=== PATIENT | male | born 1960 | race Caucasian/White ===

== ENCOUNTER 2018-06-08 10:42 | Observation (INO) | payer BC, OTHER ==
[2018-06-08] MEDS ORDERED: ASPIRIN 81 MG TABLET, CHEWABLE PO ONE (11:11)
--- NOTE | 2018-06-08 11:12 | ER Document Report ---
ED Medical Screen (RME) - General Chief Complaint: Chest Pain Stated Complaint: CHEST PAIN, DIZZY Primary Care Provider: GAMAL WYMAN MD [Primary Care Provider] - Follow up as needed TRAVEL OUTSIDE OF THE [place] IN LAST 30 DAYS: No - HPI Notes: 06/08/18 11:12 Patient complained of chest pain which started last night. Pain comes and goes. There is no pattern to this chest pain. Patient has sarcoidosis and hypertension. He has never had a stress test in the past. Patient said currently he is chest pain-free. - Related Data Allergies/Adverse Reactions: No Known Allergies Allergy (Verified 06/08/18 10:56) Past Medical History - Social History Chew tobacco use (# tins/day): No Frequency of alcohol use: None Drug Abuse: None - Past Medical History Cardiac Medical History: Reports: Hx Hypertension Renal/ Medical History: Denies: Hx Peritoneal Dialysis Physical Exam - Vital signs Vitals: Temp Pulse Resp BP Pulse Ox 98.2 F 78 18 152/91 H 98 06/08/18 10:51 06/08/18 10:51 06/08/18 10:51 06/08/18 10:51 06/08/18 10:51 Course - Vital Signs Vital signs: Temp Pulse Resp BP Pulse Ox 98.2 F 78 18 152/91 H 98 06/08/18 10:51 06/08/18 10:51 06/08/18 10:51 06/08/18 10:51 06/08/18 10:51 Doctor's Discharge - Discharge Referrals: GAMAL WYMAN MD [Primary Care Provider] - Follow up as needed
[2018-06-08] MEDS ORDERED: NITROGLYCERIN 5 MG (0.2 MG/HR) PATCH.TD24 TD ONE ×2 (11:13→14:00)
[2018-06-08 11:49] LABS: ABSOLUTE EOSINOPHILS # (AUTO) 0.3 10^3/uL (0.0-0.6); ABSOLUTE MONOCYTES (AUTO) 0.8 10^3/uL (0.1-1.4); ABSOLUTE NEUT (AUTO) 3.7 10^3/uL (1.7-8.2); BASOPHILS % (AUTO) 0.5 % (0-2); EOSINOPHILS % (AUTO) 4.5 % (0-6); INTERNATIONAL RATION (INR) 0.97; PROTHROMBIN TIME 13.4 SEC (11.4-15.4); TOTAL CELLS COUNTED % (AUTO) 100 %
[2018-06-08 11:50] LABS: PARTIAL THROMBOPLASTIN TIME 25.9 SEC (23.5-35.8)
[2018-06-08 11:58] LABS: ABSOLUTE LYMPHOCYTES (AUTO) 0.9 10^3/uL (0.5-4.7); HEMATOCRIT 45.7 % (37.9-51.0); HEMOGLOBIN 15.9 g/dL (13.5-17.0); LYMPHOCYTES % (AUTO) 15.6 % (13-45); MEAN CORPUSCULAR HEMOGLOBIN 31.8 pg (27.0-33.4); MEAN CORPUSCULAR HGB CONC 34.8 g/dL (32.0-36.0); MEAN CORPUSCULAR VOLUME 92 fl (80-97); MONOCYTES % (AUTO) 14.4 % (3-13); PLATELET COUNT 150 10^3/uL (150-450); WHITE BLOOD COUNT 5.7 10^3/uL (4.0-10.5)
[2018-06-08 12:06] LABS: ALANINE AMINOTRANSFERASE 34 U/L (21-72); ALBUMIN 4.7 g/dL (3.5-5.0); ALKALINE PHOSPHATASE 88 U/L (38-126); ANION GAP 7 (5-19); ASPARTATE AMINO TRANSFERASE 32 U/L (17-59); BILIRUBIN,DIRECT 0.3 mg/dL (0.0-0.4); BILIRUBIN,TOTAL 0.7 mg/dL (0.2-1.3); BLOOD UREA NITROGEN 20 mg/dL (7-20); CALCIUM 11.5 mg/dL (8.4-10.2); CARBON DIOXIDE 31 mmol/L (22-30); CHLORIDE 102 mmol/L (98-107); CREATINE KINASE 58 U/L (55-170); GLUCOSE 114 mg/dL (75-110); POTASSIUM 4.4 mmol/L (3.6-5.0); SODIUM 140.2 mmol/L (137-145); TOTAL PROTEIN 8.6 g/dL (6.3-8.2)
--- NOTE | 2018-06-08 12:06 | RADIOLOGY REPORT (SQ) ---
EXAM DESCRIPTION: CHEST SINGLE VIEW COMPLETED DATE/TIME: 06/08/2018 11:23 am REASON FOR STUDY: chest pain COMPARISON: None. EXAM PARAMETERS: NUMBER OF VIEWS: One view. TECHNIQUE: Single frontal radiographic view of the chest acquired. RADIATION DOSE: NA LIMITATIONS: None. FINDINGS: LUNGS AND PLEURA: Bilateral perihilar infiltrates. Partially confluent infiltrate on the right. Infectious etiology most likely. No previous chest x-rays. Recommend clinical correlation a nd followup for clearing. MEDIASTINUM AND HILAR STRUCTURES: No masses. Contour normal. HEART AND VASCULAR STRUCTURES: Heart normal in size. Normal vasculature. BONES: No acute findings. HARDWARE: None in the chest. OTHER: No other significant finding. IMPRESSION: Perihilar infiltrates. See above discussion. TECHNICAL DOCUMENTATION: JOB ID: [id number] [employer]- All Rights Reserved Reading location - IP/workstation name: [email or web address]
[2018-06-08 12:21] LABS: CREATINE KINASE MB 0.54 ng/mL (<4.55)
[2018-06-08 12:22] LABS: TROPONIN I < 0.012 ng/mL
--- NOTE | 2018-06-08 13:09 | EKG REPORT ---
SEVERITY:- NORMAL ECG - SINUS RHYTHM : Confirmed by: Maximo Marmolejo MD 08-Jun-2018 13:08:15
[2018-06-08] MEDS ORDERED: NITROGLYCERIN 2% OINTMENT 1 GM PACKET ONE (13:20)
--- NOTE | 2018-06-08 15:01 | ER Document Report ---
ED Cardiac - General Chief Complaint: Chest Pain Stated Complaint: CHEST PAIN, DIZZY Time Seen by Provider: 06/08/18 14:21 Notes: 58-year-old male to the emergency department chief complaint of left-sided chest pain. Patient states that he began having chest pain at work. Pain was located on the left side. Began also having some dizziness and felt like he was going to pass out. [place] tingling all over. He is never felt this way before. Did not pass out. Pain waxed and waned but at this time is gone. Patient does have a history of sarcoidosis. TRAVEL OUTSIDE OF THE [place] IN LAST 30 DAYS: No - HPI Patient complains to provider of: Chest pain Quality of pain: Mild, Burning Chest pain radiation location: Left arm Severity now: Mild Severity at worst: Mild Pain level currently: Denies Cardiac risk factors: None Associated symptoms: Dizziness, Lightheaded - Related Data Allergies/Adverse Reactions: No Known Allergies Allergy (Verified 06/08/18 10:56) Past Medical History - General Information source: Patient - Social History Smoking Status: Never Smoker Chew tobacco use (# tins/day): No Frequency of alcohol use: None Drug Abuse: None Lives with: Spouse/Significant other Family History: Reviewed & Not Pertinent Patient has suicidal ideation: No Patient has homicidal ideation: No - Past Medical History Cardiac Medical History: Reports: Hx Hypertension Renal/ Medical History: Denies: Hx Peritoneal Dialysis Review of Systems - Review of Systems Notes: Constitutional: denies: Chills, Diaphoresis, Fever, Malaise, Weakness EENT: denies: Eye discharge, Blurred vision, Tearing, Double vision, Nose congestion, Nose discharge, Throat swelling, Mouth pain Cardiovascular: denies: Palpitations, Heart racing, Orthopnea, Dyspnea, +Chest pain Respiratory: denies: Cough, Hurts to breathe, Wheezing, Shortness of breath Gastrointestinal: denies: Abdominal pain, Diarrhea, Nausea, Vomiting, Black stools, bright red blood in stool Genitourinary: denies: Burning, Dysuria, Discharge, Frequency, Flank pain, Hematuria Musculoskeletal: denies: Joint pain, Joint swelling, Muscle pain, Muscle stiffness, back pain Hematologic/Lymphatic: denies: Anemia, Easy bleeding, Easy bruising, Blood clots Neurological/Psychological: denies: Confusion, Dementia, Depression, Loss of consciousness. Positive for dizziness Skin: No lesions, no masses, no skin breakdown, no abscesses Physical Exam - Vital signs Vitals: Temp Pulse Resp BP Pulse Ox 98.2 F 78 18 152/91 H 98 06/08/18 10:51 06/08/18 10:51 06/08/18 10:51 06/08/18 10:51 06/08/18 10:51 Interpretation: Normal - General General appearance: Appears well, Alert - HEENT Head: Normocephalic, Atraumatic Eyes: Normal Pupils: PERRL - Respiratory Respiratory status: No respiratory distress Chest status: Nontender Breath sounds: Normal Chest palpation: Normal - Cardiovascular Rhythm: Regular Heart sounds: Normal auscultation Murmur: No - Abdominal Inspection: Normal Distension: No distension Bowel sounds: Normal Tenderness: Nontender Organomegaly: No organomegaly - Back Back: Normal, Nontender - Extremities General upper extremity: Normal inspection, Nontender, Normal color, Normal ROM, Normal temperature General lower extremity: Normal inspection, Nontender, Normal color, Normal ROM, Normal temperature, Normal weight bearing. No: Brie's sign - Neurological Neuro grossly intact: Yes Cognition: Normal Orientation: AAOx4 [place] Coma Scale Eye Opening: Spontaneous [place] Coma Scale Verbal: Oriented [place] Coma Scale Motor: Obeys Commands [place] Coma Scale Total: 15 Speech: Normal Motor strength normal: LUE, RUE, LLE, RLE Sensory: Normal - Psychological Associated symptoms: Normal affect, Normal mood - Skin Skin Temperature: Warm Skin Moisture: Dry Skin Color: Normal Course - Re-evaluation Re-evalutation: 06/08/18 17:24 Patient with hypercalcemia ionized calcium greater than normal with chest pain. Negative troponin x2. Acute renal insufficiency with creatinine of 1.6. This is concerning arthrosis calcium level could be causing some renal dysfunction and could be causing an arrhythmia. Uncomfortable discharging without medicine consult at this time. Favor admitting overnight for hydration, cardiac monitoring. Dr. Davis will see patient and we will reconvene but anticipate admission at this time. 06/08/18 18:30 Laboratory 06/08/18 06/08/18 06/08/18 11:31 11:31 11:31 WBC 5.7 RBC 5.00 Hgb 15.9 Hct 45.7 MCV 92 MCH 31.8 MCHC 34.8 RDW 14.0 Plt Count 150 Seg Neutrophils % 65.0 Lymphocytes % 15.6 Monocytes % 14.4 H Eosinophils % 4.5 Basophils % 0.5 Absolute Neutrophils 3.7 Absolute Lymphocytes 0.9 Absolute Monocytes 0.8 Absolute Eosinophils 0.3 Absolute Basophils 0.0 PT 13.4 INR 0.97 APTT 25.9 Sodium 140.2 Potassium 4.4 Chloride 102 Carbon Dioxide 31 H Anion Gap 7 BUN 20 Creatinine 1.65 H Est GFR ( Amer) 52 L Est GFR (Non-Af Amer) 43 L Glucose 114 H Calcium 11.5 H Ionized Calcium Yelena Total Bilirubin 0.7 Direct Bilirubin 0.3 Neonat Total Bilirubin Not Reportable Neonat Direct Bilirubin Not Reportable Neonat Indirect Bili Not Reportable AST 32 ALT 34 Alkaline Phosphatase 88 Creatine Kinase 58 CK-MB (CK-2) Troponin I Total Protein 8.6 H Albumin 4.7 06/08/18 06/08/18 06/08/18 11:31 15:40 16:15 WBC RBC Hgb Hct MCV MCH MCHC RDW Plt Count Seg Neutrophils % Lymphocytes % Monocytes % Eosinophils % Basophils % Absolute Neutrophils Absolute Lymphocytes Absolute Monocytes Absolute Eosinophils Absolute Basophils PT INR APTT Sodium Potassium Chloride Carbon Dioxide Anion Gap BUN Creatinine Est GFR ( Amer) Est GFR (Non-Af Amer) Glucose Calcium Ionized Calcium Yelena 1.36 H Total Bilirubin Direct Bilirubin Neonat Total Bilirubin Neonat Direct Bilirubin Neonat Indirect Bili AST ALT Alkaline Phosphatase Creatine Kinase CK-MB (CK-2) 0.54 Troponin I < 0.012 < 0.012 Total Protein Albumin Chest X-Ray 06/08/18 11:11 IMPRESSION: Perihilar infiltrates. See above discussion. - Vital Signs Vital signs: Temp Pulse Resp BP Pulse Ox 98.2 F 78 16 149/95 H 99 06/08/18 10:51 06/08/18 10:51 06/08/18 18:01 06/08/18 18:00 06/08/18 18:01 - Laboratory Result Diagrams: 06/08/18 11:31 06/08/18 11:31 Laboratory results interpreted by me: 06/08/18 06/08/18 06/08/18 11:31 11:31 16:15 Monocytes % 14.4 H Carbon Dioxide 31 H Creatinine 1.65 H Est GFR ( Amer) 52 L Est GFR (Non-Af Amer) 43 L Glucose 114 H Calcium 11.5 H Ionized Calcium Yelena 1.36 H Total Protein 8.6 H - EKG Interpretation by Mt EKG shows normal: Sinus rhythm, [place], Intervals, QRS Complexes, ST-T Waves Discharge - Discharge Clinical Impression: Hypercalcemia, Acute renal insufficiency Chest pain Qualifiers: Chest pain type: unspecified Qualified Code(s): R07.9 - Chest pain, unspecified Condition: Good Disposition: ADMITTED OBSERVATION Admitting Provider: Hospitalist - [facility] Admitted: Telemetry
[2018-06-08] MEDS ORDERED: NORMAL SALINE 1000 ML 1,000 ML IV ONE (15:16)
--- NOTE | 2018-06-08 18:32 | PDOC H&P ---
History of Present Illness Admission Date/PCP: 06/08/18 17:44 IZZY CHE MD History of Present Illness: JACOB RIOS is a 58 year old male with a history of pulmonary sarcoidosis who has not had a flareup in 2 years was in his usual state of health until last night he began to feel a couple of episodes of the sensation he described as feeling like a bruise that pulsated 3 or 4 times in his left upper chest just under his clavicle and then it spontaneously stopped. This morning whenever he was getting ready for work he said the same thing happened again. He was otherwise feeling fine. He got to work and was logging into his computer when he said he felt that again he also felt what he described as dizziness or giddiness. Whatever it was, he just felt like it was not normal for him and so he decided to come to the hospital to get checked out. He was not having any chest discomfort here. He had 2 sets of negative cardiac enzymes. His EKG was normal. He had some perihilar edema on chest x-ray, elevated creatinine, and elevated calcium. He is being admitted for observation and some IV fluids. Past Medical History Cardiac Medical History: Reports: Hypertension Social History Smoking Status: Never Smoker Family History Family History: Reviewed & Not Pertinent Parental Family History Reviewed: Yes - Hypertension Children Family History Reviewed: Yes - No significant past medical history Sibling(s) Family History Reviewed.: Yes - Hypertension Medication/Allergy Home Medications: Benazepril HCl [Lotensin 5 mg Tablet] 5 mg PO DAILY 06/08/18 Febuxostat [Uloric 80 mg Tablet] 80 mg PO DAILY 06/08/18 Allergies/Adverse Reactions: No Known Allergies Allergy (Verified 06/08/18 10:56) Review of Systems All systems: reviewed and no additional remarkable complaints except as stated - All systems were reviewed and were negative except as noted in the HPI Physical Exam Vital Signs: Temp Pulse Resp BP Pulse Ox 98.2 F 78 27 H 148/91 H 100 06/08/18 10:51 06/08/18 10:51 06/08/18 16:01 06/08/18 15:42 06/08/18 16:01 Intake & Output 06/07/18 06/08/18 06/09/18 06:59 06:59 06:59 Intake Total 1000 Balance 1000 Weight 114.7 kg General appearance: PRESENT: no acute distress, cooperative, morbidly obese Head exam: PRESENT: atraumatic, normocephalic Eye exam: PRESENT: EOMI, PERRLA. ABSENT: conjunctival injection, nystagmus, scleral icterus Ear exam: PRESENT: normal external ear exam Mouth exam: PRESENT: moist, neck supple Throat exam: ABSENT: post pharyngeal erythema Neck exam: PRESENT: full ROM. ABSENT: carotid bruit, JVD, lymphadenopathy, meningismus, tenderness, thyromegaly Respiratory exam: PRESENT: clear to auscultation eloise, symmetrical, unlabored. ABSENT: accessory muscle use, chest wall tenderness, crackles, prolonged expiratory phas, rhonchi, stridor, tachypnea, wheezes Cardiovascular exam: PRESENT: RRR, +S1, +S2. ABSENT: diastolic murmur, systolic murmur Pulses: PRESENT: normal carotid pulses Vascular exam: PRESENT: normal capillary refill GI/Abdominal exam: PRESENT: normal bowel sounds, soft. ABSENT: distended, guarding, rebound, tenderness Extremities exam: ABSENT: clubbing, pedal edema Musculoskeletal exam: PRESENT: normal inspection. ABSENT: deformity Neurological exam: PRESENT: alert, awake, oriented to person, oriented to place, oriented to time, oriented to situation, CN II-XII grossly intact. ABSENT: motor sensory deficit Psychiatric exam: PRESENT: appropriate affect, normal mood Skin exam: PRESENT: dry, warm Results Laboratory Results: 06/08/18 11:31 06/08/18 11:31 06/08/18 06/08/18 06/08/18 11:31 11:31 16:15 WBC 5.7 RBC 5.00 Hgb 15.9 Hct 45.7 MCV 92 MCH 31.8 MCHC 34.8 RDW 14.0 Plt Count 150 Seg Neutrophils % 65.0 Lymphocytes % 15.6 Monocytes % 14.4 H Eosinophils % 4.5 Basophils % 0.5 Absolute Neutrophils 3.7 Absolute Lymphocytes 0.9 Absolute Monocytes 0.8 Absolute Eosinophils 0.3 Absolute Basophils 0.0 Sodium 140.2 Potassium 4.4 Chloride 102 Carbon Dioxide 31 H Anion Gap 7 BUN 20 Creatinine 1.65 H Est GFR ( Amer) 52 L Est GFR (Non-Af Amer) 43 L Glucose 114 H Calcium 11.5 H Ionized Calcium Yelena 1.36 H Total Bilirubin 0.7 AST 32 ALT 34 Alkaline Phosphatase 88 Total Protein 8.6 H Albumin 4.7 06/08/18 06/08/18 06/08/18 11:31 11:31 15:40 Creatine Kinase 58 CK-MB (CK-2) 0.54 Troponin I < 0.012 < 0.012 Impressions: Chest X-Ray 06/08/18 11:11 IMPRESSION: Perihilar infiltrates. See above discussion. Assessment & Plan - Diagnosis (1) Acute kidney injury Is this a current diagnosis for this admission?: Yes Plan: Will have any prior labs to compare so we have to assume this is acute. We will give him some IV fluids to see how he responds. If it does not improve we may need to contact his lathe hand in light of his history of sarcoidosis. (2) Hypercalcemia Is this a current diagnosis for this admission?: Yes Plan: He said this is been an ongoing problem for him with his sarcoidosis. We will give him some IV fluids and repeat a metabolic panel in the morning. - Time Time Spent: 50 to 70 Minutes - Plan Summary Plan Summary: I do not think this was cardiac at all. His story was atypical for cardiac chest pain, his EKG is normal, and he had 2 sets of negative enzymes. Chest x- ray showed some perihilar infiltrates, likely associated with his known pulmona ry sarcoidosis. If his creatinine does not improve with hydration, I will likely contact his lathe hand.
[2018-06-08] MEDS: NORMAL SALINE 1000 ML 1,000 ML IV PRN (21:48)
[2018-06-09] MEDS: NORMAL SALINE 1000 ML 1,000 ML IV PRN ×3 (05:14→20:48)
[2018-06-09 07:06] LABS: BLOOD UREA NITROGEN 20 mg/dL (7-20); CALCIUM 10.1 mg/dL (8.4-10.2); GLUCOSE 96 mg/dL (75-110)
[2018-06-09 07:07] LABS: ANION GAP 9 (5-19); CARBON DIOXIDE 22 mmol/L (22-30); CHLORIDE 108 mmol/L (98-107); POTASSIUM 3.9 mmol/L (3.6-5.0); SODIUM 139.2 mmol/L (137-145)
[2018-06-09] MEDS: FEBUXOSTAT 80 MG TABLET PO SCH (11:03)
[2018-06-09] MEDS: BENAZEPRIL HCL 5 MG TABLET PO SCH (11:03)
--- NOTE | 2018-06-09 14:42 | PDOC PROGRESS REPORT ---
Subjective Progress Note for:: 06/09/18 Subjective:: This is a 58 year old male with a history of pulmonary sarcoidosis who has not had a flareup in 2 years was in his usual state of health until last night he began to feel a couple of episodes of the sensation he described as feeling like a bruise that pulsated 3 or 4 times in his left upper chest just under his clavicle and then it spontaneously stopped. In the ER, his work up was remarkable for perihilar fullness on chest x-ray, elevated creatinine, and elevated calcium. He was admitted for observation and hydration with IV fluids. No acute event overnight. He has been chest pain free since admission. Denies SOB. Creatinine has slightly trended down. Reason For Visit: CMAERON,HYPERCALCEMIA Physical Exam Vital Signs: Temp Pulse Resp BP Pulse Ox 98.3 F 64 20 138/87 H 95 06/09/18 11:27 06/09/18 11:27 06/09/18 11:27 06/09/18 11:27 06/09/18 11:27 Intake & Output 06/08/18 06/09/18 06/10/18 06:59 06:59 06:59 Intake Total 2169 1000 Balance 2169 1000 Weight 252 lb 6.868 oz General appearance: PRESENT: no acute distress, well-developed, well-nourished Head exam: PRESENT: atraumatic, normocephalic Eye exam: PRESENT: conjunctiva pink, EOMI, PERRLA. ABSENT: scleral icterus Ear exam: PRESENT: normal external ear exam Mouth exam: PRESENT: moist, tongue midline Neck exam: ABSENT: carotid bruit, JVD, lymphadenopathy, thyromegaly Respiratory exam: PRESENT: clear to auscultation eloise. ABSENT: rales, rhonchi, wheezes Cardiovascular exam: PRESENT: RRR. ABSENT: diastolic murmur, rubs, systolic murmur Pulses: PRESENT: normal dorsalis pedis pul GI/Abdominal exam: PRESENT: normal bowel sounds, soft. ABSENT: distended, guarding, mass, organolmegaly, rebound, tenderness Rectal exam: PRESENT: deferred Neurological exam: PRESENT: alert, awake, oriented to person, oriented to place, oriented to time, oriented to situation, CN II-XII grossly intact. ABSENT: motor sensory deficit Results Laboratory Results: 06/08/18 11:31 06/09/18 05:48 06/08/18 06/09/18 16:15 05:48 Sodium 139.2 Potassium 3.9 Chloride 108 H Carbon Dioxide 22 Anion Gap 9 BUN 20 Creatinine 1.56 H Est GFR ( Amer) 56 L Est GFR (Non-Af Amer) 46 L Glucose 96 Calcium 10.1 Ionized Calcium Yelena 1.36 H 06/08/18 06/08/18 06/08/18 11:31 11:31 15:40 Creatine Kinase 58 CK-MB (CK-2) 0.54 Troponin I < 0.012 < 0.012 Impressions: Chest X-Ray 06/08/18 11:11 IMPRESSION: Perihilar infiltrates. See above discussion. Assessment & Plan - Diagnosis (1) Acute kidney injury Is this a current diagnosis for this admission?: Yes Plan: Likely pre renal. Slightly improved today with IV fluids. (2) Hypercalcemia Is this a current diagnosis for this admission?: Yes Plan: Likely from dehydration in a patient with sarcoidosis. Resolved with IV fluids. (3) Chest pain Qualifiers: Chest pain type: unspecified Qualified Code(s): R07.9 - Chest pain, unspecified Is this a current diagnosis for this admission?: Yes Plan: Resolved. No chest pain since admission. EKG and troponins have been unremarkable. He may benefit from outpatient stress testing. - Time Time Spent with patient: 15-24 minutes
[2018-06-10] MEDS: NORMAL SALINE 1000 ML 1,000 ML IV PRN (04:48)
[2018-06-10] MEDS: FEBUXOSTAT 80 MG TABLET PO SCH (09:07)
[2018-06-10] MEDS: BENAZEPRIL HCL 5 MG TABLET PO SCH (09:07)
[2018-06-10 10:45] LABS: ANION GAP 8 (5-19); BLOOD UREA NITROGEN 17 mg/dL (7-20); CALCIUM 10.7 mg/dL (8.4-10.2); CARBON DIOXIDE 26 mmol/L (22-30); CHLORIDE 107 mmol/L (98-107); GLUCOSE 100 mg/dL (75-110); SODIUM 140.5 mmol/L (137-145)
[2018-06-10 11:27] VITALS: BP 133/83
--- NOTE | 2018-06-10 17:22 | PDOC DISCHARGE SUMMARY ---
General - Admit/Disc Date/PCP Admission Date/Primary Care Provider: 06/08/18 17:44 IZZY CHE MD Discharge Date: 06/10/18 - Discharge Diagnosis (1) Acute kidney injury Is this a current diagnosis for this admission?: Yes (2) Hypercalcemia Is this a current diagnosis for this admission?: Yes (3) Chest pain Is this a current diagnosis for this admission?: Yes - Additional Information Resuscitation Status: Full Code Discharge Diet: As Tolerated Discharge Activity: Activity As Tolerated Home Medications: Benazepril HCl [Lotensin 5 mg Tablet] 5 mg PO DAILY 06/08/18 Febuxostat [Uloric 80 mg Tablet] 40 mg PO DAILY #0 06/10/18 History of Present Illness History of Present Illness: Admitting hospitalist's H&P: JACOB RIOS is a 58 year old male with a history of pulmonary sarcoidosis who has not had a flareup in 2 years was in his usual state of health until last night he began to feel a couple of episodes of the sensation he described as feeling like a bruise that pulsated 3 or 4 times in his left upper chest just under his clavicle and then it spontaneously stopped. This morning whenever he was getting ready for work he said the same thing happened again. He was otherwise feeling fine. He got to work and was logging into his computer when he said he felt that again he also felt what he described as dizziness or giddiness. Whatever it was, he just felt like it was not normal for him and so he decided to come to the hospital to get checked out. He was not having any chest discomfort here. He had 2 sets of negative cardiac enzymes. His EKG was normal. He had some perihilar edema on chest x-ray, elevated creatinine, and elevated calcium. He is being admitted for observation and some IV fluids. Hospital Course Hospital Course: This is a 58 year old male with a history of pulmonary sarcoidosis who has not had a flareup in 2 years, taken off methotrexate and was in his usual state of health who presented with a vague chest discomfort. In the ER, his work up was remarkable for perihilar fullness on chest x-ray, elevated creatinine, and elevated calcium. He was admitted for observation and hydration with IV fluids. His EKG and serial troponins were normal. He described his chest discomfort as "as if a finger is mildly poking on my left upper chest" lasting for a few seconds and nonradiating. He has been chest pain free since admission. He was recommended outpatient stress testing for this. He was started on fluids which did improve his creatinine. He has a known sa rcoidosis and has been taken off methotrexate by his fiberglass roller as he was considered in remission. His hypercalcemia also improve with IV fluids. CXR shows perihilar fullness classic of sarcoid. He denies any cough or SOB. No leukocytosis. He does say he was following up with a button tacker at [facility] for his sarcoidosis. Recommended close ff-up with his rheum and button tacker for further recommendations about need to restart him on medication for sarcoidosis. Physical Exam Vital Signs: Temp Pulse Resp BP Pulse Ox 98.1 F 68 18 133/83 H 93 06/10/18 13:22 06/10/18 13:22 06/10/18 13:22 06/10/18 13:22 06/10/18 13:22 Intake & Output 06/09/18 06/10/18 06/11/18 06:59 06:59 06:59 Intake Total 2169 4120 1000 Balance 2169 4120 1000 Weight 252 lb 6.868 oz 252 lb 6.868 oz General appearance: PRESENT: no acute distress, well-developed, well-nourished Head exam: PRESENT: atraumatic, normocephalic Eye exam: PRESENT: conjunctiva pink, EOMI, PERRLA. ABSENT: scleral icterus Ear exam: PRESENT: normal external ear exam Mouth exam: PRESENT: moist, tongue midline Neck exam: ABSENT: carotid bruit, JVD, lymphadenopathy, thyromegaly Respiratory exam: PRESENT: clear to auscultation eloise. ABSENT: rales, rhonchi, wheezes Cardiovascular exam: PRESENT: RRR. ABSENT: diastolic murmur, rubs, systolic murmur Pulses: PRESENT: normal dorsalis pedis pul GI/Abdominal exam: PRESENT: normal bowel sounds, soft. ABSENT: distended, guarding, mass, organolmegaly, rebound, tenderness Rectal exam: PRESENT: deferred Extremities exam: PRESENT: full ROM. ABSENT: calf tenderness, clubbing, pedal edema Neurological exam: PRESENT: alert, awake, oriented to person, oriented to place, oriented to time, oriented to situation, CN II-XII grossly intact. ABSENT: motor sensory deficit Psychiatric exam: PRESENT: appropriate affect, normal mood. ABSENT: homicidal ideation, suicidal ideation Results Laboratory Results: 06/08/18 11:31 06/10/18 09:52 06/10/18 06/10/18 06/10/18 09:52 09:52 12:24 Sodium 140.5 Potassium 4.0 Chloride 107 Carbon Dioxide 26 Anion Gap 8 BUN 17 Creatinine 1.50 H Est GFR ( Amer) 59 L Est GFR (Non-Af Amer) 48 L Glucose 100 Uric Acid 5.9 Calcium 10.7 H PTH Intact 70.3 H 06/08/18 06/08/18 06/08/18 11:31 11:31 15:40 Creatine Kinase 58 CK-MB (CK-2) 0.54 Troponin I < 0.012 < 0.012 06/09/18 14:56 Creatine Kinase CK-MB (CK-2) Troponin I < 0.012 Impressions: Chest X-Ray 06/08/18 11:11 IMPRESSION: Perihilar infiltrates. See above discussion. Qualifiers - * PATIENT BEING DISCHARGED WITH ANY OF THE FOLLOWING DIAGNOSIS: No
== END 2018-06-10 14:26 | disposition home or self-care (01) ==
LOC: ER 10:42 → EH 17:44 → 4W 21:20
PROVIDERS: ADMIT Internal Medicine; ATTEND Internal Medicine
DX: N17.9 Acute kidney failure, unspecified (principal); E83.52 Hypercalcemia; R07.89 Other chest pain; D86.0 Sarcoidosis of lung; E66.01 Morbid (severe) obesity due to excess calories; R20.2 Paresthesia of skin; R42 Dizziness and giddiness; Z79.899 Other long term (current) drug therapy
CPT/HCPCS: 93005; 99285; 96360; 96361; 36415 ×3; 82553; 82550; 84550; 85025; 85610; 85730; 80048 ×2; 80053; 84484 ×2; 82306; 82330; 83970; 71045; 93010; G0378 ×4; J3490 ×4; J7030 ×3

== ENCOUNTER → 2018-06-28 | Outpatient (CLI) | payer OTHER ==
[~2018-06-28] MED LIST: ALBUTEROL SULFATE 0.083% NEB 2.5 MG/3 ML AMPUL NEB ONE
--- NOTE | 2018-06-29 15:27 | Pulmonary Function Test ---
Pulmonary Function Test Date of Procedure:: 06/28/18 INDICATION:: Sarcoidosis Referring Provider: Dr. Naveed Watt Computer Engineering Technician: Alba Gibbs CASE MONITOR - Report Spirometry: FVC 4.19 L 81% postbronchodilator 4.22 L 82% FEV1 3.20 L 77% postbronchodilator 3.24 L 78% FEV1/FVC % 76 postbronchodilator 77 predicted 80 FEF 25-75% 2.70 L 65% postbronchodilator 2.71 L 65% Diffusion Capactity: Diffusion capacity to 24.2 82% DLCO/VA 3.85 96% Impression: Small airways disease is noted however spirometry does not meet criteria for obstructive ventilatory defect. Normal diffusion capacity.
== END ==
LOC: RT 11:50
PROVIDERS: ATTEND Internal Medicine
DX: D86.9 Sarcoidosis, unspecified (principal)
CPT/HCPCS: 94060; 94729